=== PATIENT | male | born 1950 | race Caucasian/White ===

== ENCOUNTER 2018-03-01 16:13 | Inpatient (IN) ==
--- NOTE | 2018-03-01 16:16 | Emergency Department Note ---
Disposition Clinical Impression: Community acquired pneumonia, Sepsis Disposition: Admitted As Inpatient Condition: Fair General Adult HPI - General Stated complaint: ULYSSES Time Seen by Provider: 03/01/18 16:15 - Related Data Allergies Allergy/AdvReac Type Severity Reaction Status Date / Time No Known Allergies Allergy Verified 03/01/18 16:15 Past Medical History - Past Medical History Medical history: Reports: CHF, COPD, coronary artery disease, CVA, GERD, hypertension Psychiatric history: Reports: no psych history - Social History Smoking Status: Current every day smoker Smokeless Tobacco Status: No Alcohol use: Reports: none Drug use: Reports: none Course Vital Signs Temperature 99.6 F 03/01/18 16:15 Pulse Rate 109 03/01/18 16:15 Respiratory Rate 19 03/01/18 16:15 Blood Pressure 131/70 03/01/18 16:15 O2 Sat by Pulse Oximetry 91 03/01/18 16:15 Temperature 99.6 F 03/01/18 16:15 Pulse Rate 108 03/01/18 17:54 Respiratory Rate 16 03/01/18 18:27 Blood Pressure 125/61 03/01/18 18:27 O2 Sat by Pulse Oximetry 90 03/01/18 17:54 Oxygen Delivery Oxygen Delivery Nasal Cannula Medical Decision Making - Lab Data Result diagrams: 03/01/18 16:50 03/01/18 16:50 Lab Results 03/01/18 03/01/18 03/01/18 Range/Units 16:50 16:50 17:49 WBC 15.8 H (4.3-11.1) K/mcL RBC 5.31 (4.19-5.50) M/mcL Hgb 16.2 (12.9-16.9) g/dL Hct 45.5 (37.5-50.1) % MCV 85.7 (83.0-100.0) fL MCH 30.5 (28.0-33.3) pg MCHC 35.6 H (31.6-35.5) g/dL RDW 12.7 (11.5-14.5) % Plt Count 200 (140-400) K/mcL MPV 9.6 (9.4-12.4) fL Immature Gran % 0.7 (0-4) % Seg Neutrophils % 89.2 % Lymphocytes % 6.9 % Monocytes % 3.0 % Eosinophils % 0.0 % Basophils % 0.2 % Neutrophils # 14.1 H (1.6-8.9) K/mcL Lymphocytes # 1.1 (0.6-4.6) K/mcL Monocytes # 0.5 (0.0-1.3) K/mcL Eosinophils # 0.0 (0.0-0.6) K/mcL Basophils # 0.0 (0.0-0.2) K/mcL Sodium 135 L (136-145) mEq/L Potassium 3.6 (3.5-5.1) mEq/L Chloride 102 (98-107) mEq/L Carbon Dioxide 22 L (23-29) mEq/L BUN 14 (8-23) mg/dL Creatinine 1.06 (0.70-1.30) mg/dL Est GFR ( Amer) > 60 (> 60) Est GFR (Non-Af Amer) > 60 (> 60) BUN/Creatinine Ratio 13 (6-26) Glucose 136 H (70-105) mg/dL Calculated Osmolality 283 (280-300) Lactic Acid 3.0 H (0.5-2.2) mmol/L Calcium 8.8 (8.6-10.3) mg/dL Attestation Statement - Attestation Attestation: I examined this patient and my medical decision-making was reviewed with the Resident Physician. I agree with the documented findings, disposition and treatment plan as described except to the extent set forth below. [id number] time provided Patient arrives by EMS complaining of dyspnea. No acute respiratory distress is evident upon arrival. The patient is not home oxygen dependent. He was evaluated in conjunction with the resident physician
[2018-03-01] MEDS ORDERED: Ipratropium/Albuterol Neb 3 ML IH ONE (16:25)
[2018-03-01] MEDS ORDERED: methylPREDNISolone 125 MG/2 ML VIAL IVP ONE (16:25)
--- NOTE | 2018-03-01 16:33 | Emergency Department Note ---
Disposition Clinical Impression: Community acquired pneumonia Qualifiers: Laterality: left Lung location: lower lobe of lung Qualified Code(s): J18.1 - Lobar pneumonia, unspecified organism Sepsis Qualifiers: Sepsis type: sepsis due to unspecified organism Qualified Code(s): A41.9 - Sepsis, unspecified organism Disposition: Admitted As Inpatient Condition: Fair Time of Disposition: 18:38 SOB HPI - General Chief Complaint: ED Shortness of Breath/Dyspnea Stated Complaint: ULYSSES Time Seen by Provider: 03/01/18 16:15 Source: EMS Limitations: no limitations Nursing Notes Reviewed: Yes Vital Signs Reviewed: Yes - History of Present Illness presents from home via EMS for violation of shortness of breath. Onset progressive over the past several days and acutely worse today. He currently is at his baseline cough however, yesterday, had chills with a cough that was slightly worse than normal. This has resolved however his dyspnea such that he is not dyspneic at rest and unable to walk to use the restroom without profound shortest of breath. His symptoms are not improved with his home meter dose inhaler. He does not have home oxygen. Meds: Current every day smoker PMH includes COPD and emphysema. ROS: Positive: As above Negative: Chest pain, palpitations, unusual back pain, headache, dizziness, vertigo, nausea, vomiting, abdominal pain, changes in bowel or bladder. - Related Data Allergies Allergy/AdvReac Type Severity Reaction Status Date / Time No Known Allergies Allergy Verified 03/01/18 16:15 All systems ED: reviewed and negative except as stated. Past Medical History - Past Medical History Medical history: Reports: CHF, COPD, coronary artery disease, CVA, GERD, hypertension Psychiatric history: Reports: no psych history - Social History Smoking Status: Current every day smoker Smokeless Tobacco Status: No Alcohol use: Reports: none Drug use: Reports: none Physical Exam Vital Signs Reviewed General: Patient is alert, oriented, and in moderate respiratory distress- accessory muscle use on 5 L nasal cannula supplemental oxygen. Head: atraumatic, normocephalic Eye: normal appearance, no scleral icterus, no conjunctival injection ENT: mucous membranes moist, normal external ear exam Neck: normal inspection, trachea midline, full ROM Chest: normal inspection, symmetric chest rise Respiratory: Poor respiratory effort. Prolonged expiratory phase. Bilateral breath sounds have scattered wheeze with left sided crackles. Cardiovascular: Tachycardic rate and regular rhythm. No clicks, rubs, gallops, or murmors. Normal heart sounds. Abdomen: Sounds present. Abdomen is soft, nondistended, and nontender. No guarding or rebound. No organomegaly noted. Musculoskeletal: Spontaneously moving all extremities. Skin: warm, dry, intact. Neuro: Alert and oriented x4. Sensation light touch intact. Psych: Patient's affect is appropriate for situation. - General Limitations: no limitations General appearance: alert, in no apparent distress Course Course Narrative: EKG dated 01 Mar 2018 at 16:18 interpreted as sinus tachycardia with a rate of 105. Normal intervals. Normal axis. Nonspecific ST-T changes. Compared to previous dated 02/23/2016 showing no acute ischemic changes comparison. Chest x-ray on my review shows left lower lobe pneumonia. This was not discussed on radiology impression. Left lower lobe pneumonia correlates with my physical exam findings. On intake vitals, patient is not SIRS positive however, subsequent lab work and repeat vitals showed patient does meet SIRS criteria. Given his left-sided pneumonia, he is septic. We will add septic workup and cover him for community- acquired pneumonia with sepsis. Hematology shows leukocytosis at 15.8. Serum chemistry shows normal renal function with lactate elevated at 3.0 however he does not meet criteria for lactic acidemia. Timed lactate is pending. Cultures pending. We will begin patient on azithromycin and ceftriaxone. He has received Solu- Medrol steroids and nebulizer treatments. I discussed the above with the patient and his family at bedside. They are in agreement to admission for continued evaluation and management. Specifically discussed sepsis and my concern about a potentially run-away inflammatory reaction that can be damaging and the need to be aggressive early in the course of his hospital stay. I discussed the patient with the admitting hospitalist, Dr. Parker, who agrees to accept the patient for continued evaluation and management. Chest X-Ray 03/01/18 16:26 IMPRESSION: 1. Right lower lobe airspace opacity with small right pleural effusion. In the proper clinical setting, finding is compatible with pneumonia. Recommend follow-up chest radiograph 6-8 weeks post completion of treatment to ensure resolution. If finding persists at that time, CT of the chest would be recommended. D/ / Dov Ray MD / Dov Ray MD Interpreting Provider: Dov Ray MD Vital Signs Temperature 99.6 F 03/01/18 16:15 Pulse Rate 109 03/01/18 16:15 Respiratory Rate 19 03/01/18 16:15 Blood Pressure 131/70 03/01/18 16:15 O2 Sat by Pulse Oximetry 91 03/01/18 16:15 Temperature 99.6 F 03/01/18 16:15 Pulse Rate 108 03/01/18 17:54 Respiratory Rate 16 03/01/18 18:27 Blood Pressure 125/61 03/01/18 18:27 O2 Sat by Pulse Oximetry 90 03/01/18 17:54 Oxygen Delivery Oxygen Delivery Nasal Cannula Shortness of Breath/Dyspnea - Lab Data Result diagrams: 03/01/18 16:50 03/01/18 16:50 Lab Results 03/01/18 03/01/18 03/01/18 Range/Units 16:50 16:50 17:49 WBC 15.8 H (4.3-11.1) K/mcL RBC 5.31 (4.19-5.50) M/mcL Hgb 16.2 (12.9-16.9) g/dL Hct 45.5 (37.5-50.1) % MCV 85.7 (83.0-100.0) fL MCH 30.5 (28.0-33.3) pg MCHC 35.6 H (31.6-35.5) g/dL RDW 12.7 (11.5-14.5) % Plt Count 200 (140-400) K/mcL MPV 9.6 (9.4-12.4) fL Immature Gran % 0.7 (0-4) % Seg Neutrophils % 89.2 % Lymphocytes % 6.9 % Monocytes % 3.0 % Eosinophils % 0.0 % Basophils % 0.2 % Neutrophils # 14.1 H (1.6-8.9) K/mcL Lymphocytes # 1.1 (0.6-4.6) K/mcL Monocytes # 0.5 (0.0-1.3) K/mcL Eosinophils # 0.0 (0.0-0.6) K/mcL Basophils # 0.0 (0.0-0.2) K/mcL Sodium 135 L (136-145) mEq/L Potassium 3.6 (3.5-5.1) mEq/L Chloride 102 (98-107) mEq/L Carbon Dioxide 22 L (23-29) mEq/L BUN 14 (8-23) mg/dL Creatinine 1.06 (0.70-1.30) mg/dL Est GFR ( Amer) > 60 (> 60) Est GFR (Non-Af Amer) > 60 (> 60) BUN/Creatinine Ratio 13 (6-26) Glucose 136 H (70-105) mg/dL Calculated Osmolality 283 (280-300) Lactic Acid 3.0 H (0.5-2.2) mmol/L Calcium 8.8 (8.6-10.3) mg/dL
[2018-03-01 17:02] LABS: Basophils % 0.2 %; Hematocrit 45.5 % (37.5-50.1); Hemoglobin 16.2 g/dL (12.9-16.9); Immature Granulocytes % 0.7 % (0-4); Lymphocytes # 1.1 K/mcL (0.6-4.6); Lymphocytes % 6.9 %; Mean Corpuscular HGB Conc 35.6 g/dL (31.6-35.5); Mean Corpuscular Hemoglobin 30.5 pg (28.0-33.3); Mean Corpuscular Volume 85.7 fL (83.0-100.0); Mean Platelet Volume 9.6 fL (9.4-12.4); Monocytes # 0.5 K/mcL (0.0-1.3); Neutrophils # 14.1 K/mcL (1.6-8.9); Platelet Count 200 K/mcL (140-400); Red Blood Count 5.31 M/mcL (4.19-5.50); Red Cell Distribution Width 12.7 % (11.5-14.5); Segmented Neutrophils % 89.2 %
[2018-03-01 17:18] LABS: BUN/Creatinine Ratio 13 (6-26); Blood Urea Nitrogen 14 mg/dL (8-23); Calcium 8.8 mg/dL (8.6-10.3); Carbon Dioxide 22 mEq/L (23-29); Chloride 102 mEq/L (98-107); Glucose 136 mg/dL (70-105); Osmolality,Calculated 283 (280-300); Potassium 3.6 mEq/L (3.5-5.1); Sodium 135 mEq/L (136-145); eGFR For African Americans > 60 (> 60); eGFR For Non-African Americans > 60 (> 60)
[2018-03-01] MEDS ORDERED: cefTRIAXone 2,000 MG in 0.9 % Sodium Chloride Mini Bag 100 ML IVPB ONE (17:26)
[2018-03-01] MEDS ORDERED: Azithromycin 500 MG in D5% in Water 250 ML IVPB ONE (17:26)
[2018-03-01] MEDS ORDERED: cefTRIAXone 2,000 MG in Water for inj. (sterile) 20 ML IVP ONE (17:35)
[2018-03-01] MEDS ORDERED: Azithromycin 500 MG in D5% in Water 250 ML IVPB SCH (18:00)
[2018-03-01] MEDS ORDERED: Naloxone 0.4 MG/ML INJ IVP PRN (20:39)
[2018-03-01] MEDS ORDERED: Acetaminophen 325 MG TABLET PO PRN (20:39)
[2018-03-01] MEDS ORDERED: Ipratropium/Albuterol Neb 3 ML IH PRN (20:47)
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
[2018-03-01 20:58] LABS: ABG Base Excess -2 mEq/L (-2 to 3); ABG HCO3 20 mEq/L (21-27); ABG Oxygen Saturation 96 % (95-98); ABG PCO2 27 mmHg (35-45); ABG PH 7.49 pH Units (7.32-7.45); ABG PO2 71 mmHg (85-104); ABG TCO2 21 mEq/L (20-26)
[2018-03-01] MEDS: *HR* Morphine Sulfate SR (12 HR) 15 MG TABLET.ER PO SCH (21:56)
[2018-03-01] MEDS: 0.9 % Sodium Chloride 1,000 ML IVC SCH (22:34)
[2018-03-01] MEDS: *HR* Heparin 5,000 UNIT/ML VIAL SQ SCH (22:34)
[2018-03-02] MEDS: MethylPREDNISolone 40 MG/ML VIAL IVP SCH ×4 (00:17→23:43)
[2018-03-02 04:17] LABS: Hematocrit 40.6 % (37.5-50.1); Mean Corpuscular HGB Conc 35.7 g/dL (31.6-35.5); Mean Corpuscular Hemoglobin 30.4 pg (28.0-33.3); Mean Corpuscular Volume 85.1 fL (83.0-100.0); Platelet Count 195 K/mcL (140-400); Red Blood Count 4.77 M/mcL (4.19-5.50); Red Cell Distribution Width 12.6 % (11.5-14.5)
[2018-03-02 04:40] LABS: BUN/Creatinine Ratio 19 (6-26); Blood Urea Nitrogen 20 mg/dL (8-23); Carbon Dioxide 23 mEq/L (23-29); Chloride 103 mEq/L (98-107); Potassium 3.5 mEq/L (3.5-5.1); Sodium 134 mEq/L (136-145); eGFR For African Americans > 60 (> 60)
[2018-03-02 04:41] LABS: Calcium 8.6 mg/dL (8.6-10.3); Glucose 172 mg/dL (70-105); Hemoglobin 14.5 g/dL (12.9-16.9); Osmolality,Calculated 285 (280-300); eGFR For Non-African Americans > 60 (> 60)
[2018-03-02 05:09] LABS: Lymphocytes # 1.3 K/mcL (0.6-4.6); Monocytes # 0.2 K/mcL (0.0-1.3); Neutrophils # 16.6 K/mcL (1.6-8.9); Platelet Estimate Normal (Normal)
[2018-03-02] MEDS: hydroCHLOROthiazide 25 MG TABLET PO SCH (08:20)
[2018-03-02] MEDS: *HR* Heparin 5,000 UNIT/ML VIAL SQ SCH ×3 (08:20→23:43)
[2018-03-02] MEDS: *HR* Morphine Sulfate SR (12 HR) 15 MG TABLET.ER PO SCH ×2 (08:20→21:21)
[2018-03-02] MEDS: Aspirin Enteric Coated 81 MG Tablet PO SCH (08:20)
[2018-03-02] MEDS ORDERED: Levofloxacin 750 MG/150 ML 750 MG/150 ML BAG IVPB SCH (09:00)
[2018-03-02 10:20] LABS: Enterococcus by PCR Not Detected (Not Detect)
[2018-03-02 10:21] LABS: Acinetobacter baumannii by PCR Not Detected (Not Detect); Candida albicans by PCR Not Detected (Not Detect); Candida glabrata by PCR Not Detected (Not Detect); Candida krusei by PCR Not Detected (Not Detect); Candida parapsilosis by PCR Not Detected (Not Detect); Candida tropicalis by PCR Not Detected (Not Detect); Escherichia coli by PCR Not Detected (Not Detect); Klebsiella oxytoca by PCR Not Detected (Not Detect); Klebsiella pneumoniae by PCR Not Detected (Not Detect); Pseudomonas aeruginosa by PCR Not Detected (Not Detect); Serratia marcescens by PCR Not Detected (Not Detect); Staphylococcus aureus by PCR Not Detected (Not Detect); Streptococcus agalactiae(B)PCR Not Detected (Not Detect); Streptococcus by PCR ***DETECTED*** (Not Detect); Streptococcus pneumoniae PCR ***DETECTED*** (Not Detect); Streptococcus pyogenes (A) PCR Not Detected (Not Detect)
--- NOTE | 2018-03-02 14:31 | Internal Med Progress Note ---
Date of Encounter: 03/02/18 Time of Encounter: 14:29 - Assessment and plan (1) Bacteremia Current Visit: Yes Status: Acute Assessment and plan: Blood culture positive for gram-positive cocci unclear if contamination or real bacteremia will send another blood culture and consult ID (2) Community acquired pneumonia Current Visit: Yes Status: Acute Assessment and plan: on zithromax and rocephin Qualifiers: Laterality: right Lung location: lower lobe of lung Qualified Code(s): J18.1 - Lobar pneumonia, unspecified organism (3) Sepsis Current Visit: Yes Status: Acute Assessment and plan: culture positive gram positive cocci Qualifiers: Sepsis type: sepsis due to unspecified organism Qualified Code(s): A41.9 - Sepsis, unspecified organism (4) Acute exacerbation of chronic obstructive airways disease Current Visit: Yes Status: Acute Assessment and plan: clinical improvement (5) CAD (coronary artery disease) Current Visit: Yes Status: Chronic Assessment and plan: no chest pain Qualifiers: Coronary Disease-Associated Artery/Lesion type: [place] artery [place] vs. transplanted heart: [place] heart Associated angina: without angina Qualified Code(s): I25.10 - Atherosclerotic heart disease of [place] coronary artery without angina pectoris (6) Essential hypertension Current Visit: Yes Status: Chronic Assessment and plan: well controlled (7) Tobacco abuse Current Visit: Yes Status: Chronic - Time Spent With Patient Total time spent is greater than 50% in coordination of care (as documented) at patient's floor/unit and/or counseling patient: - Subjective Interval history: Patient with history of COPD, CAD, CVA, hypertension. Patient admitted with shortness of breath productive cough ight-sided chest pain evaluation consistent with pneumonia and sepsis. Patient is seen today said he feeling much better and asking when he can go home but blood culture came back positive for gram-positive cocci we will consult ID for further evaluation - Constitutional Vitals: Temp Pulse Resp BP Pulse Ox 97.9 F 69 20 119/69 97 03/02/18 10:49 03/02/18 10:49 03/02/18 10:49 03/02/18 10:49 03/02/18 10:49 General appearance: Present: mild distress, A&O X 3, answers questions appropriately - Head Head exam: Present: atraumatic, normocephalic - Neck Neck exam general surgery: Present: supple, trachea midline. Absent: lymphadenopathy - Respiratory Respiratory exam: Present: prolonged expiratory phase, rhonchi, wheezes - Cardiovascular Cardiovascular exam: Present: RRR, +S1, +S2. Absent: diastolic murmur, gallop, rubs, systolic murmur - GI/Abdominal GI/Abdominal exam: Present: normal bowel sounds, soft, no peritoneal signs. Absent: distended, tenderness - Extremities Exam Extremities exam: Present: warm, radial pulses palpable and symmetrical. Absent : calf tenderness, cyanotic, pedal edema Internal Medicine: Result - Labs CBC & Chem 7: 03/02/18 04:03 03/02/18 04:03 Labs: Short CBC 03/02/18 Range/Units 04:03 WBC 18.6 H (4.3-11.1) K/mcL Hgb 14.5 D (12.9-16.9) g/dL Hct 40.6 (37.5-50.1) % Plt Count 195 (140-400) K/mcL Neutrophils # 16.6 H (1.6-8.9) K/mcL BMP 03/02/18 04:03 Sodium 134 L Potassium 3.5 Chloride 103 Carbon Dioxide 23 BUN 20 Creatinine 1.06 Glucose 172 H Calcium 8.6 Cardiac Enzymes 03/01/18 03/02/18 Range/Units 21:39 04:03 Troponin I < 0.03 < 0.03 (< 0.04) ng/mL - ABG Interpretation ABG results: ABG ABG pH 7.49 pH Units (7.32-7.45) H 03/01/18 20:55 ABG pCO2 27 mmHg (35-45) L 03/01/18 20:55 ABG pO2 71 mmHg (85-104) L 03/01/18 20:55 ABG O2 Saturation 96 % (95-98) 03/01/18 20:55 Consult Discharge Plan - Plan [facility]errals: [facility] [Primary Care Provider[facility] -
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
[2018-03-02] MEDS: cefTRIAXone 2,000 MG in Water for inj. (sterile) 20 ML 20 ML IVP SCH ×2 (16:03→16:19)
[2018-03-02] MEDS: 0.9 % Sodium Chloride 1,000 ML IVC SCH (16:04)
[2018-03-03] MEDS: cefTRIAXone 2,000 MG in Water for inj. (sterile) 20 ML 20 ML IVP SCH ×2 (06:19→17:57)
[2018-03-03 07:53] LABS: Hematocrit 40.7 % (37.5-50.1); Hemoglobin 14.4 g/dL (12.9-16.9); Mean Corpuscular HGB Conc 35.4 g/dL (31.6-35.5); Mean Corpuscular Volume 87.7 fL (83.0-100.0); Platelet Count 219 K/mcL (140-400); Red Blood Count 4.64 M/mcL (4.19-5.50); Red Cell Distribution Width 12.8 % (11.5-14.5)
--- NOTE | 2018-03-03 09:27 | Infectious Disease Progress No ---
Date of Encounter: 03/03/18 Time of Encounter: 09:25 - Assessment and Plan (1) Severe sepsis Current Visit: Yes Status: Acute Patient had 2 SIRS criteria with leukocytosis and tachycardia Lactate was elevated at 3.0 on presentation, trended up to 4.6 the night of admission, and has since normalized Source is community-acquired pneumonia due to strep pneumoniae and strep pneumonia bacteremia Blood pressures remain stable Transitioned to Rocephin and vancomycin 03/02 as discussed below Repeat blood cultures pending (2) Bacteremia Current Visit: Yes Status: Acute Patient had initial set of blood cultures positive with strep pneumonia by PCR Complete ID and sensitivities are pending Likely due to his community-acquired pneumonia Patient had received Rocephin and azithromycin in the emergency department, was transitioned to Levaquin on admission Transitioned to Rocephin 2 g every 12 hours and vancomycin 15 mg/kg, pharmacy to assist in dosing for invasive Streptococcus pneumoniae. Duration will be based on clinical course. Creatinine clearance 81 based on yesterdays labs Repeat blood cultures were drawn yesterday and are pending. Patient has 1 modified Arnett criteria Suspicion for endocarditis is low, if the patient has persistent bacteremia or does not respond to appropriate medical therapy would then recommend endocarditis workup (3) Community acquired pneumonia Current Visit: Yes Status: Acute Causative organism: Strep pneumonia Evidence of right lower lobe infiltrate with small effusion on chest x-ray with blood cultures positive for strep pneumoniae as discussed above Transition antibiotics to Rocephin and vancomycin as discussed above Repeat chest x-ray today shows trace pleural effusion Recommend repeat chest x-ray as an outpatient in 4-6 weeks to ensure resolution Duration of antibiotics will depend on clinical course Qualifiers: Laterality: right Lung location: lower lobe of lung Qualified Code(s): J18.1 - Lobar pneumonia, unspecified organism (4) Acute exacerbation of chronic obstructive airways disease Current Visit: Yes Status: Acute Patient is currently being treated for acute exacerbation of COPD and is currently on IV steroids. In the setting of invasive Streptococcus pneumonia infection would recommend using steroids as little as possible. We will defer further management to primary team (5) CAD (coronary artery disease) Current Visit: Yes Status: Chronic Qualifiers: Coronary Disease-Associated Artery/Lesion type: [place] artery [place] vs. transplanted heart: [place] heart Associated angina: without angina Qualified Code(s): I25.10 - Atherosclerotic heart disease of [place] coronary artery without angina pectoris (6) Essential hypertension Current Visit: Yes Status: Chronic (7) Tobacco abuse Current Visit: Yes Status: Chronic - Subjective Interval history: Patient seen and examined at bedside. Patient states that he feels good today. He has no complaints. He had no issues overnight. He denies fever, chills, cough, shortness of breath Infect Dis PN-Objective Data - Labs CBC & Chem 7: 03/03/18 05:39 03/02/18 04:03 Labs: Laboratory Results - last 24 hr 03/03/18 05:39 WBC 15.8 H RBC 4.64 Hgb 14.4 Hct 40.7 MCV 87.7 MCH 31.0 MCHC 35.4 RDW 12.8 Plt Count 219 MPV 11.0 - Impressions Impressions Chest X-Ray 03/03/18 06:00 IMPRESSION: Stable small right pleural effusion. Slight improvement of patchy right lower lobe airspace opacity suggesting improving right lower lobe pneumonia. D/ / 03/03/2018 08:41:53 Avery Seay MD / alison Interpreting Provider: Avery Seay MD Exam - Constitutional Vitals: Temp Pulse Resp BP Pulse Ox 97.5 F L 65 18 128/55 96 03/03/18 07:19 03/03/18 07:19 03/03/18 07:19 03/03/18 07:19 03/03/18 07:19 - Respiratory Respiratory exam: Present: decreased breath sounds (Right lower lobe), wheezes ( Rare scattered bilaterally). Absent: rhonchi, stridor - Cardiovascular Cardiovascular exam: Present: RRR. Absent: rubs, systolic murmur - GI/Abdominal GI/Abdominal exam: Present: normal bowel sounds, soft. Absent: tenderness - Extremities Exam Extremities exam: Absent: pedal edema - Neurological Exam Neurological exam: Present: alert, oriented X3, no focal deficits Consult Discharge Plan - Plan Referrals: [facility] [Primary Care Provider] - - Attending Attestation I examined this patient and my medical decision-making was reviewed with the Resident Physician. I agree with the documented findings, disposition and treatment plan as described except to the extent set forth below.
[2018-03-03] MEDS: *HR* Morphine Sulfate SR (12 HR) 15 MG TABLET.ER PO SCH ×2 (10:12→20:11)
[2018-03-03] MEDS: hydroCHLOROthiazide 25 MG TABLET PO SCH (10:12)
[2018-03-03] MEDS: Aspirin Enteric Coated 81 MG Tablet PO SCH (10:12)
[2018-03-03] MEDS: *HR* Heparin 5,000 UNIT/ML VIAL SQ SCH ×3 (10:12→23:32)
[2018-03-03] MEDS: MethylPREDNISolone 40 MG/ML VIAL IVP SCH ×3 (10:13→23:32)
--- NOTE | 2018-03-03 12:16 | Internal Med Progress Note ---
Date of Encounter: 03/03/18 Time of Encounter: 12:14 - Assessment and plan (1) Bacteremia Current Visit: Yes Status: Acute Assessment and plan: severe sepsis appreciate ID INPUT (2) Community acquired pneumonia Current Visit: Yes Status: Acute Assessment and plan: CONTINUE CURRENT ANTIBIOTICS Qualifiers: Laterality: right Lung location: lower lobe of lung Qualified Code(s): J18.1 - Lobar pneumonia, unspecified organism (3) Sepsis Current Visit: Yes Status: Acute Assessment and plan: RESOLVING Qualifiers: Sepsis type: sepsis due to unspecified organism Qualified Code(s): A41.9 - Sepsis, unspecified organism (4) Acute exacerbation of chronic obstructive airways disease Current Visit: Yes Status: Acute Assessment and plan: CLINICALLY IMPROVED (5) CAD (coronary artery disease) Current Visit: Yes Status: Chronic Assessment and plan: no chest pain Qualifiers: Coronary Disease-Associated Artery/Lesion type: [place] artery [place] vs. transplanted heart: [place] heart Associated angina: without angina Qualified Code(s): I25.10 - Atherosclerotic heart disease of [place] coronary artery without angina pectoris (6) Essential hypertension Current Visit: Yes Status: Chronic Assessment and plan: chronic and well controlled (7) Tobacco abuse Current Visit: Yes Status: Chronic Assessment and plan: chronic - Time Spent With Patient Total time spent is greater than 50% in coordination of care (as documented) at patient's floor/unit and/or counseling patient: - Subjective Interval history: Patient with history of COPD, CAD, CVA, hypertension. Patient admitted with shortness of breath productive cough ight-sided chest pain evaluation consistent with pneumonia and sepsis. Patient is seen today said he feeling much better and asking when he can go home but blood culture came back positive for gram-positive cocci we will consult ID for further evaluation patient says doing and feels much better today appreciate ID input - Constitutional Vitals: Temp Pulse Resp BP Pulse Ox 97.5 F L 65 17 107/59 95 03/03/18 10:53 03/03/18 10:53 03/03/18 10:53 03/03/18 10:53 03/03/18 10:53 General appearance: Present: mild distress, A&O X 3, answers questions appropriately - Head Head exam: Present: atraumatic, normocephalic - Eye Eye exam: Present: PERRL, conjuntiva pink, sclera anicteric Pupils: Present: PERRL - Neck Neck exam general surgery: Present: supple, trachea midline. Absent: lymphadenopathy - Respiratory Respiratory exam: Present: wheezes - Cardiovascular Cardiovascular exam: Present: RRR, +S1, +S2. Absent: diastolic murmur, gallop, rubs, systolic murmur Internal Medicine: Result - Labs CBC & Chem 7: 03/03/18 05:39 03/02/18 04:03 Labs: Short CBC 03/03/18 Range/Units 05:39 WBC 15.8 H (4.3-11.1) K/mcL Hgb 14.4 (12.9-16.9) g/dL Hct 40.7 (37.5-50.1) % Plt Count 219 (140-400) K/mcL - ABG Interpretation ABG results: ABG ABG pH 7.49 pH Units (7.32-7.45) H 03/01/18 20:55 ABG pCO2 27 mmHg (35-45) L 03/01/18 20:55 ABG pO2 71 mmHg (85-104) L 03/01/18 20:55 ABG O2 Saturation 96 % (95-98) 03/01/18 20:55 - Impressions Impressions Chest X-Ray 03/03/18 06:00 IMPRESSION: Stable small right pleural effusion. Slight improvement of patchy right lower lobe airspace opacity suggesting improving right lower lobe pneumonia. D/ / 03/03/2018 08:41:53 Avery Seay MD / alison Interpreting Provider: Avery Seay MD Consult Discharge Plan - Plan Referrals: [facility] [Primary Care Provider] -
--- NOTE | 2018-03-03 16:38 | Electrocardiograph Report ---
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
[2018-03-03] MEDS: 0.9 % Sodium Chloride 1,000 ML IVC SCH (17:58)
[2018-03-04 04:37] LABS: Vancomycin,Trough 14 mcg/mL (5-10)
[2018-03-04] MEDS: cefTRIAXone 2,000 MG in Water for inj. (sterile) 20 ML 20 ML IVP SCH (04:52)
[2018-03-04 08:04] LABS: BUN/Creatinine Ratio 31 (6-26); Blood Urea Nitrogen 26 mg/dL (8-23); Calcium 8.6 mg/dL (8.6-10.3); Carbon Dioxide 23 mEq/L (23-29); Chloride 109 mEq/L (98-107); Glucose 168 mg/dL (70-105); Osmolality,Calculated 303 (280-300); Potassium 3.3 mEq/L (3.5-5.1); Sodium 142 mEq/L (136-145); eGFR For African Americans > 60 (> 60); eGFR For Non-African Americans > 60 (> 60)
[2018-03-04] MEDS: hydroCHLOROthiazide 25 MG TABLET PO SCH (08:18)
[2018-03-04] MEDS: MethylPREDNISolone 40 MG/ML VIAL IVP SCH (08:18)
[2018-03-04] MEDS: Aspirin Enteric Coated 81 MG Tablet PO SCH (08:18)
[2018-03-04] MEDS: *HR* Heparin 5,000 UNIT/ML VIAL SQ SCH (08:18)
[2018-03-04] MEDS: *HR* Morphine Sulfate SR (12 HR) 15 MG TABLET.ER PO SCH (08:18)
[2018-03-04] MEDS: 0.9 % Sodium Chloride 1,000 ML IVC SCH (08:25)
[2018-03-04 08:56] LABS: Basophils % 0.1 %; Hematocrit 39.9 % (37.5-50.1); Hemoglobin 13.9 g/dL (12.9-16.9); Immature Granulocytes % 1.2 % (0-4); Lymphocytes % 8.7 %; Mean Corpuscular HGB Conc 34.8 g/dL (31.6-35.5); Mean Corpuscular Hemoglobin 30.8 pg (28.0-33.3); Mean Corpuscular Volume 88.5 fL (83.0-100.0); Mean Platelet Volume 11.2 fL (9.4-12.4); Monocytes # 0.5 K/mcL (0.0-1.3); Monocytes % 4.6 %; Neutrophils # 9.4 K/mcL (1.6-8.9); Nucleated Red Blood Cells 0.3 /100 WBC (0); Platelet Count 231 K/mcL (140-400); Red Blood Count 4.51 M/mcL (4.19-5.50); Red Cell Distribution Width 12.9 % (11.5-14.5); Segmented Neutrophils % 85.4 %
--- NOTE | 2018-03-04 09:40 | Infectious Disease Progress No ---
Addendum entered and electronically signed by Young Ocasio DO 03/04/18 15:13: Patient can be transitioned at discharge to amoxicillin PO 875mg BID for a total of 14 days from first negative blood cultures Original Note: Date of Encounter: 03/04/18 Time of Encounter: 09:37 - Assessment and Plan (1) Severe sepsis Current Visit: Yes Status: Acute Patient had 2 SIRS criteria with leukocytosis and tachycardia Lactate was elevated at 3.0 on presentation, trended up to 4.6 the night of admission, and has since normalized Resolved Source is community-acquired pneumonia due to strep pneumoniae and strep pneumonia bacteremia Blood pressures remain stable Transitioned to Rocephin and vancomycin 03/02 as discussed below Repeat blood cultures preliminarily no growth to date Will d/c vanc, change rocephin to daily dosing (2) Bacteremia Current Visit: Yes Status: Acute Patient had initial set of blood cultures positive with strep pneumonia Pansensitive with low ZELDA to vancomycin and Rocephin Likely due to his community-acquired pneumonia Patient had received Rocephin and azithromycin in the emergency department, was transitioned to Levaquin on admission Transitioned to Rocephin 2 g every 12 hours and vancomycin 15 mg/kg, pharmacy to assist in dosing for invasive Streptococcus pneumoniae on 03/02. Will d/c vanc and decrease rocephin dosing to daily Duration will be based on clinical course but likely 2 weeks of antibiotics from negative blood cultures. Creatinine clearance 103 Repeat blood cultures drawn 03/02 are preliminarily no growth. Patient has 1 modified Arnett criteria Suspicion for endocarditis is low (3) Community acquired pneumonia Current Visit: Yes Status: Acute Causative organism: Strep pneumonia Evidence of right lower lobe infiltrate with small effusion on chest x-ray with blood cultures positive for strep pneumoniae as discussed above Transition antibiotics to Rocephin and vancomycin as discussed above Repeat chest x-ray yesterday shows trace pleural effusion Recommend repeat chest x-ray as an outpatient in 4-6 weeks to ensure resolution Duration of antibiotics will depend on clinical course but likely 2 weeks given bacteremia Qualifiers: Laterality: right Lung location: lower lobe of lung Qualified Code(s): J18.1 - Lobar pneumonia, unspecified organism (4) Acute exacerbation of chronic obstructive airways disease Current Visit: Yes Status: Acute Patient is currently being treated for acute exacerbation of COPD and is currently on IV steroids. In the setting of invasive Streptococcus pneumonia infection would recommend using steroids as little as possible. We will defer further management to primary team (5) CAD (coronary artery disease) Current Visit: Yes Status: Chronic Qualifiers: Coronary Disease-Associated Artery/Lesion type: [place] artery [place] vs. transplanted heart: [place] heart Associated angina: without angina Qualified Code(s): I25.10 - Atherosclerotic heart disease of [place] coronary artery without angina pectoris (6) Essential hypertension Current Visit: Yes Status: Chronic (7) Tobacco abuse Current Visit: Yes Status: Chronic - Subjective Interval history: Patient seen and examined at bedside. Patient states that he feels good today. He has no complaints. He had no issues overnight. He denies fever, chills, cough, shortness of breath. He reports one episode of loose stools but denies frequent diarrhea Infect Dis PN-Objective Data - Labs CBC & Chem 7: 03/04/18 03:51 03/04/18 03:51 Labs: Laboratory Results - last 24 hr 03/04/18 03/04/18 03:51 03:51 WBC 11.0 RBC 4.51 Hgb 13.9 Hct 39.9 MCV 88.5 MCH 30.8 MCHC 34.8 RDW 12.9 Plt Count 231 MPV 11.2 Immature Gran % 1.2 Seg Neutrophils % 85.4 Lymphocytes % 8.7 Monocytes % 4.6 Eosinophils % 0.0 Basophils % 0.1 Neutrophils # 9.4 H Lymphocytes # 1.0 Monocytes # 0.5 Eosinophils # 0.0 Basophils # 0.0 Nucleated RBCs/100 WBC 0.3 H Sodium 142 Potassium 3.3 L Chloride 109 H Carbon Dioxide 23 BUN 26 H Creatinine 0.85 Est GFR ( Amer) > 60 Est GFR (Non-Af Amer) > 60 BUN/Creatinine Ratio 31 H Glucose 168 H Calculated Osmolality 303 H Calcium 8.6 Vancomycin Trough 14 H Cultures: Cultures 03/02/18 14:57 Blood Culture - Preliminary Peripheral Venipuncture No growth. 03/02/18 14:57 Blood Culture - Preliminary Peripheral Venipuncture No growth. Exam - Constitutional Vitals: Temp Pulse Resp BP Pulse Ox 97.9 F 64 18 129/70 95 03/04/18 07:10 03/04/18 07:10 03/04/18 07:10 03/04/18 07:10 03/04/18 07:10 - Respiratory Respiratory exam: Present: decreased breath sounds. Absent: rales, rhonchi, wheezes - Cardiovascular Cardiovascular exam: Present: RRR. Absent: diastolic murmur, gallop, systolic murmur - GI/Abdominal GI/Abdominal exam: Present: normal bowel sounds, soft. Absent: firm, tenderness - Extremities Exam Extremities exam: Absent: pedal edema - Neurological Exam Neurological exam: Present: alert, oriented X3, no focal deficits Consult Discharge Plan - Plan Additional Instructions: Please take your medications as directed. Folllow up with your PCP in the next 5-7 days for a recheck. Resume your normal activities and diet as tolerated. [facility]Primary Care Provider[facility] - Prescriptions: Amoxicillin/Clavulanate [Augmentin] 875 mg PO BIDWM #14 tablet predniSONE [PredniSONE] 10 mg PO DAILY #31 tablet - Attending Attestation I examined this patient and my medical decision-making was reviewed with the Resident Physician. I agree with the documented findings, disposition and treatment plan as described except to the extent set forth below.
[2018-03-04 15:02] VITALS: BP 128/79
--- NOTE | 2018-03-04 16:07 | Discharge Summary ---
- NOTES TO OUTPATIENT PROVIDER Notes to Outpatient Provider: Pt was admitted for bacteremia/sepsis. Initial blood cultures positive for strep pneumo. Pt was treated with IV Vanco and Rocephin. 2nd set negative. Pt will be discharged with Amoxicillin 875mg po BID x 14 days. Orders not resulted at time of discharge: Pending orders 03/02/18 14:57 Culture,Blood [BC] Stat 03/05/18 04:00 Basic Metabolic Panel AM 0400 Complete Blood Count [HEME] AM 0400 03/06/18 04:00 Basic Metabolic Panel AM 0400 Complete Blood Count [HEME] AM 0400 Date of Encounter: 03/04/18 Time of Encounter: 09:50 - Discharge Diagnosis (1) Community acquired pneumonia Priority: Primary Status: Acute Assessment and Plan: Chest XRay shows right lower lobe opacity. Initial blood culture showed Strep pneumoniae. Pt has been followed by ID and will be discharged with po Augmentin 875mg po BID x 14 days. Lungs are clear and pt is not requiring 02. Qualifiers: Laterality: right Lung location: lower lobe of lung Qualified Code(s): J18.1 - Lobar pneumonia, unspecified organism (2) Sepsis Priority: Secondary Status: Acute Assessment and Plan: Resolved. Qualifiers: Sepsis type: sepsis due to unspecified organism Qualified Code(s): A41.9 - Sepsis, unspecified organism (3) Acute exacerbation of chronic obstructive airways disease Priority: Secondary Status: Acute Assessment and Plan: Exacerbation likely complicated due to Pneumonia; continue breathing treatments , po steroid taper, po antibiotics, Pt does not require home 02. (4) CAD (coronary artery disease) Priority: Secondary Status: Chronic Assessment and Plan: Pt denies chest pain. Continue ASA, Plavix, beta praveena, statin. Qualifiers: Coronary Disease-Associated Artery/Lesion type: [place] artery [employer] vs. transplanted heart: [place] heart Associated angina: without angina Qualified Code(s): I25.10 - Atherosclerotic heart disease of [place] coronary artery without angina pectoris (5) Essential hypertension Priority: Secondary Status: Chronic Assessment and Plan: Chronic. Continue home medicatons. Well controlled. (6) Tobacco abuse Priority: Secondary Status: Chronic Assessment and Plan: Pt states that he has no desire to stop smoking. Education completed. Hospital course: Mr. Ramos is a 67 year old male with PMH of CAD, COPD, tobacco abuse. Pt was admitted for worsening shortness of breath and severe cough, right-sided chest and rib pain, general malaise and fatigue. She was admitted to the emergency department and treated for community acquired pneumonia, sepsis, bacteremia. Initial blood culture grew strep pneumoniae. Patient was treated with vancomycin and Rocephin. Patient was evaluated by infectious disease. Second set of blood cultures negative. Patient has improved significantly. Physical exam is unremarkable other than faint expiratory wheezing bilateral posterior bases. He is not requiring supplemental oxygen. His labs and vitals have returned to normal. He is going to be discharged with Augmentin 875 mg twice daily for 14 days. Patient will need to follow up with primary care to resolution. He is stable and appropriate for discharge. Discharge discussed with: patient, nurse - Time Spent with Patient Total time spent providing and/or coordinating discharge services: Less than 30 minutes - Discharge Medications Prescriptions: Amoxicillin/Clavulanate [Augmentin] 875 mg PO BIDWM #14 tablet predniSONE [PredniSONE] 10 mg PO DAILY #31 tablet Home Medications: Albuterol Sulfate [Proair Respiclick] 90 mcg IH Q6H PRN 03/01/18 [History] Aspirin [Lo-Dose Aspirin EC] 81 mg PO DAILY 03/01/18 [History] Atenolol [Tenormin] 25 mg PO DAILY 03/01/18 [History] Atorvastatin [Lipitor] 40 mg PO HS 03/01/18 [History] Clopidogrel Bisulfate [Plavix] 75 mg PO DAILY 03/01/18 [History] Omeprazole [PriLOSEC] 20 mg PO DAILY 03/01/18 [History] Peg 400/Hypromellose/Glycerin [Visine Tired Eye Relief Drop] 15 ml OP TID [History] hydroCHLOROthiazide [Hydrochlorothiazide] 25 mg PO DAILY 03/01/18 [History] Morphine Sulfate SR (12 HR) [MS Contin] 1 tab PO Q12HR 03/02/18 [History] Amoxicillin/Clavulanate [Augmentin] 875 mg PO BIDWM #14 tablet 03/04/18 [Rx] predniSONE [PredniSONE] 10 mg PO DAILY #31 tablet 03/04/18 [Rx] Allergies/Adverse Reactions: 3 Allergy/AdvReac Type Severity Reaction Status Date / Time No Known Allergies Allergy Verified 03/01/18 16:15 Date of admission: 03/01/18 20:39 Primary care physician: [facility] Consults: 03/02/18 14:24 Consult to Infectious Diseases [CONS] Routine Consulting Provider: Infectious Disease Natalya Reason for Consult: bacteremia/ positive blood culure Call Completed: No 03/04/18 09:41 Consult to Biofuels Research Scientist [CONS] Routine Reason for SW Consult: Likely need for home IV abx/[facility] patient 03/04/18 12:19 Consult to Invasive Line Access Team [CONS] Routine Reason for Consult: Outpt. Atbs. Line Type: Midline Discharging clinician: Mercedes Almanzar Anticipated date of discharge: 03/04/18 - Constitutional Vitals: Temp Pulse Resp BP Pulse Ox 97.5 F L 68 18 128/79 95 03/04/18 15:01 03/04/18 15:01 03/04/18 15:01 03/04/18 15:01 03/04/18 15:01 General appearance: Present: cooperative, mild distress, A&O X 3, pleasant, no acute distress, answers questions appropriately - Head Head exam: Present: atraumatic, normal inspection, normocephalic - Eye Eye exam: Present: normal appearance, conjuntiva pink, sclera anicteric - Neck Neck exam general surgery: Present: supple, trachea midline. Absent: lymphadenopathy, tenderness - Respiratory Respiratory exam: Present: CTAB, wheezes. Absent: accessory muscle use, rales, respiratory distress, rhonchi - Cardiovascular Cardiovascular exam: Present: RRR, +S1, +S2. Absent: diastolic murmur, gallop, rubs, systolic murmur - GI/Abdominal GI/Abdominal exam: Present: normal bowel sounds, soft. Absent: distended, hepatomegaly, tenderness - Extremities Exam Extremities exam: Present: normal capillary refill, normal inspection, warm, radial pulses palpable and symmetrical. Absent: calf tenderness, cyanotic, pedal edema, tenderness - Neurological Exam Neurological exam: Present: alert, oriented X3, no focal deficits. Absent: facial droop, speech deficit - Skin Skin exam: Present: dry, intact, normal color, warm. Absent: rash - Patient Status Disposition: Home, Self-Care Condition: Good Functional capacity at discharge: independent ambulation Overall status at discharge: patient is progressing back to baseline - Discharge Instructions Follow [facility] With: [facility] Care Provider[facility] - Additional Instructions: Please take your medications as directed. Folllow up with your PCP in the next 5-7 days for a recheck. Resume your normal activities and diet as tolerated. - Diet and Activity Activity: increase activity as tolerated Diet: advance to your usual diet
[2018-03-04] MEDS ORDERED: Aminoglycoside Consult 1 EACH MC ONE (17:58)
[2018-03-04] MEDS ORDERED: cefTRIAXone 2,000 MG in Water for inj. (sterile) 20 ML 20 ML IVP SCH (18:00)
== END 2018-03-04 17:59 | disposition home or self-care (01) | DRG 871 ==
LOC: 3BNU 16:13 → EMEROO 16:13 → 3BNU 18:44
PROVIDERS: ADMIT General Practice; ATTEND General Practice